=== PATIENT | male | born 1965 | race Caucasian/White ===

== ENCOUNTER → 2017-12-29 | Outpatient (CLI) | payer OTHER | LOC: RAD 08:13 | DX: M19.041 Primary osteoarthritis, right hand (principal) ==

== ENCOUNTER 2018-01-05 13:00 | Outpatient (RCR) | payer OTHER | END 2018-01-05 13:30 | disposition home or self-care (01) | LOC: PT 13:00 | DX: M54.9 Dorsalgia, unspecified (principal) ==

== ENCOUNTER → 2018-07-22 | Outpatient (CLI) | payer BC | LOC: PT 14:24 → EDSTATUS 14:30 | DX: M75.21 Bicipital tendinitis, right shoulder (principal) ==

== ENCOUNTER → 2018-10-26 | Outpatient (RCR) | payer BC | END | disposition still patient (30) | LOC: PT | DX: M25.511 Pain in right shoulder (principal); Z98.890 Other specified postprocedural states ==

== ENCOUNTER 2018-12-21 15:45 | Outpatient (RCR) | payer BC | END 2018-12-21 16:30 | disposition still patient (30) | LOC: PT 15:45 | DX: M25.511 Pain in right shoulder (principal); Z98.890 Other specified postprocedural states ==

== ENCOUNTER → 2019-01-23 | Day surgery (SDC) | payer BC | LOC: MSO 07:27 | DX: Z12.11 Encounter for screening for malignant neoplasm of colon (principal); Z79.899 Other long term (current) drug therapy | CPT/HCPCS: 00812; J2704; J3010; J7120 ==

== ENCOUNTER 2020-02-15 08:00 | Outpatient (RCR) | payer BC | END 2020-02-15 08:30 | disposition still patient (30) | LOC: PT 08:00 | DX: Z98.890 Other specified postprocedural states (principal) ==

== ENCOUNTER 2020-09-05 10:58 | Outpatient (RCR) | payer BC | END 2020-10-31 17:00 | disposition home or self-care (01) | LOC: PT 10:58 | DX: M48.02 Spinal stenosis, cervical region (principal) ==

== ENCOUNTER → 2021-11-06 | Outpatient (CLI) | payer BC | LOC: RAD 08:45 | DX: K76.0 Fatty (change of) liver, not elsewhere classified (principal); R74.8 Abnormal levels of other serum enzymes ==